=== PATIENT | male | born 1985 | race Caucasian/White ===

== ENCOUNTER 2017-02-09 16:36 | Emergency (ER) | payer BC ==
[2017-02-09] MEDS ORDERED: ACETAMINOPHEN 325 MG TABLET PO ONE (16:45)
--- NOTE | 2017-02-09 18:29 | ER Document Report ---
ED Medical Screen (RME) - General Mode of Arrival: Ambulatory Information source: Patient TRAVEL OUTSIDE OF THE [place] IN LAST 30 DAYS: No <ALESSIO CARUSO - Last Filed: 02/09/17 18:28> <CHINMAY LEE - Last Filed: 02/10/17 14:42> - General Chief Complaint: Fever Stated Complaint: HIGH TEMP/BODY ACHES Time Seen by Provider: 02/09/17 18:27 Notes: 31-year-old male presents to ED for fever and joint pain. Temp was 102.5 and he was given Tylenol in the pelvic area. His temperature is now 99.0 he states that his joint pain is improved. He denies any nausea vomiting cough. Denies any tick bite. He states it works at [employer]. I have greeted and performed a rapid initial assessment of this patient. A comprehensive ED assessment and evaluation of the patient, analysis of test results and completion of medical decision making process will be conducted by an additional ED providers. (ALESSIO CARUSO) - Related Data Allergies/Adverse Reactions: No Known Allergies Allergy (Unverified 02/09/17 16:42) Past Medical History Renal/ Medical History: Denies: Hx Peritoneal Dialysis Past Surgical History: Reports: Hx Orthopedic Surgery - R hand <ALESSIO CARUSO - Last Filed: 02/09/17 18:28> Course - Laboratory Result Diagrams: 02/09/17 18:50 02/09/17 18:50 <CHINMAY LEE - Last Filed: 02/10/17 14:42> - Vital Signs Vital signs: Temp Pulse Resp BP Pulse Ox 98.8 F 87 16 125/69 100 02/09/17 20:25 02/09/17 20:25 02/09/17 20:25 02/09/17 20:25 02/09/17 20:25 - Laboratory Laboratory results interpreted by me: 02/09/17 02/09/17 02/09/17 18:50 18:50 18:50 WBC 24.5 H RBC 6.77 H Hgb 12.9 L MCV 63 L MCH 19.1 L MCHC 30.4 L RDW 15.3 H Seg Neuts % (Manual) 80 H Band Neutrophils % 6 H Lymphocytes % (Manual) 8 L Abs Neuts (Manual) 21.1 H Direct Bilirubin 0.5 H Urine Protein 30 H Urine Urobilinogen 2.0 H Doctor's Discharge <ALESSIO CARUSO - Last Filed: 02/09/17 18:28> <CHINMAY LEE - Last Filed: 02/10/17 14:42> - Discharge Clinical Impression: Fever, Strep pharyngitis Condition: Stable Disposition: HOME, SELF-CARE Instructions: Acetaminophen, Fever ([facility]) Additional Instructions: Strep Throat Your sore throat is due to the streptococcus germ (strep throat). Strep throat usually makes you feel quite ill with fever and aches, headache, swollen sore throat, and tender bumps under the angles of the jaw. Strep throat requires antibiotic treatment. Although the sore throat may go away by itself, complications such as rheumatic fever, kidney disease, or throat abscess can occur. We usually prescribe antibiotics by mouth. Be sure to take the medicine until it's gone. If you stop early, the strep may come back. If you are vomiting, are severely ill, or can't remember to take pills, we can give you an antibiotic shot. Take acetaminophen or ibuprofen for pain and fever. Sip frequent clear liquids, or use popsicles or ice chips. Anesthetic sprays or lozenges may help. Make sure the air in the room is not too dry. Avoid using decongestants or antihistamines. Call the doctor if there is no improvement in three days, or if you have difficulty breathing, increasing throat pain, high fever, rash, or frequent vomiting. Maintain adequate fluid intake Take meds as directed tylenol/ibuprofen as needed over the counter cold medication as needed for symptoms Salt water gargles, throat sprays Use new toothbrush tomorrow evening. F/u: with your PCM in 2-3 days for a recheck Return to the ED with any fever, headache, worsening pain, chest pain, shortness of breath, trouble swallowing/breathing, abdominal pain, n/v/d, or worsening symptoms otherwise. Prescriptions: Penicillin V Potassium [Penicillin Vk 500 mg Tablet] 500 mg PO BID #20 tablet Forms: Elevated Blood Pressure, Smoking Cessation Education
[2017-02-09] MEDS ORDERED: NORMAL SALINE 1000 ML 1,000 ML IV ONE (19:20)
[2017-02-09] MEDS ORDERED: DEXAMETHASONE SOD PHOS INJ 10 MG/1 ML VIAL IM ONE (19:22)
--- NOTE | 2017-02-09 19:26 | ER Document Report ---
ED General - General Chief Complaint: Fever Stated Complaint: HIGH TEMP/BODY ACHES Time Seen by Provider: 02/09/17 18:27 Mode of Arrival: Ambulatory TRAVEL OUTSIDE OF THE [place] IN LAST 30 DAYS: No - HPI Notes: Patient with no significant PMH comes to the office c/o fever (103H), body ache , sore throat x2-3 days. Pt states that he has been taking tylenol/ibuprofen for his fever and symptoms that seem to help. He is still able to eat and drink without any problems. Pt states that he did receive tylenol during his triage which has since resolved all of his symptoms and is now feeling okay. Denies any ear pain, nasal gavi/discharge, cough, wheeze, sob, dyspnea, dysphagia, cp, palp, syncope, arellano, abd pain, n/v/d, hematemesis, hematochezia, melena, dysuria, muscle weakness, or rash. No recent insect/tick bite. No recent travel. No recent illness. No known exposure to close contact who is ill. NKDA's. No daily PO meds. + smoker. - Related Data Allergies/Adverse Reactions: No Known Allergies Allergy (Unverified 02/09/17 16:42) Past Medical History - General Information source: Patient - Social History Smoking Status: Current Every Day Smoker Family History: Reviewed & Not Pertinent Patient has suicidal ideation: No Patient has homicidal ideation: No Renal/ Medical History: Denies: Hx Peritoneal Dialysis Past Surgical History: Reports: Hx Orthopedic Surgery - R hand Review of Systems - Review of Systems Notes: REVIEW OF SYSTEMS: CONSTITUTIONAL : see hpi EENT: see hpi CARDIOVASCULAR: Denies chest pain. Denies palpitations or racing or irregular heart beat. Denies ankle edema. RESPIRATORY: Denies cough, cold, or chest congestion. Denies shortness of breath, difficulty breathing, or wheezing. GASTROINTESTINAL: Denies abdominal pain or distention. Denies nausea, vomiting , or diarrhea. Denies blood in vomitus, stools, or per rectum. Denies black, tarry stools. Denies constipation. GENITOURINARY: Denies difficulty urinating, painful urination, burning, frequency, blood in urine, or discharge. MUSCULOSKELETAL: Denies back or neck pain or stiffness. Denies joint pain or swelling. SKIN: Denies rash, lesions or sores. HEMATOLOGIC : Denies easy bruising or bleeding. LYMPHATIC: Denies swollen, enlarged glands. NEUROLOGICAL: Denies confusion or altered mental status. Denies passing out or loss of consciousness. Denies dizziness or lightheadedness. Denies headache. Denies weakness or paralysis or loss of use of either side. Denies problems with gait or speech. Denies sensory loss, numbness, or tingling. ALL OTHER SYSTEMS REVIEWED AND NEGATIVE. Dictation was performed using [employer] voice recognition software Physical Exam - Vital signs Vitals: Temp Pulse Resp BP Pulse Ox 102.7 F H 123 H 20 141/82 H 97 02/09/17 16:44 02/09/17 16:44 02/09/17 16:44 02/09/17 16:44 02/09/17 16:44 Notes: PHYSICAL EXAMINATION: GENERAL: Well-appearing, well-nourished and in no acute distress. Non-toxic appearing. Very attentive and cooperative. Does not look uncomfortable. Vitals: pulse 84. RR 16. temp 99 HEAD: Atraumatic, normocephalic. EYES: Pupils equal round and reactive to light, extraocular movements intact, sclera anicteric, conjunctiva are normal. ENT: EAC clear b/l. TM's intact b/l without erythema, fluid, or perforation. Nares patent and without discharge. Moist mucous membranes. No sinus tenderness. + pharyngeal erythema. + tonsilar hypertrophy 2+ b/l with exudates b/l. uvula midline. no palatine shift or peritonsilar abscess noted. No resp compromise. NECK: Normal range of motion, supple without lymphadenopathy. No rigidity. No meningismus. LUNGS: Breath sounds clear to auscultation bilaterally and equal. No wheezes rales or rhonchi. HEART: Regular rate and rhythm without murmurs, rubs, gallops. ABDOMEN: Soft, nontender, nondistended abdomen. No guarding, no rebound. No masses appreciated. Normal bowel sounds present. No CVA tenderness bilaterally. Musculoskeletal: FROM to passive/active. Strength 5+/5. Extremities: No cyanosis, clubbing, or edema b/l. Peripheral pulses 2+. Capillary refill less than 3 seconds. NEUROLOGICAL: Cranial nerves grossly intact. Normal speech, normal gait. Normal sensory, motor exams PSYCH: Normal mood, normal affect. SKIN: Warm, Dry, normal turgor, no rashes or lesions noted. Course - Re-evaluation Re-evalutation: 02/09/17 20:10 Patient is an afebrile (after meds in ED), well-hydrated, 31yo male who presents with acute strep pharyngitis with CENTOR criteria 3/4. Rapid strep positive. Vitals stable. PE otherwise unremarkable. I tried to cancel other labs and cxr but they were already performed. Leukocytosis noted with slight left shift. I will send him home with Penicillin V 500mg PO BID x10 days. Conservative measures otherwise for symptoms. Recheck with PCM in 2-3 days. Return to the ED with worsening symptoms. Pt in agreement. - Vital Signs Vital signs: Temp Pulse Resp BP Pulse Ox 99.0 F 123 H 20 141/82 H 97 02/09/17 18:26 02/09/17 16:44 02/09/17 16:44 02/09/17 16:44 02/09/17 16:44 - Laboratory Result Diagrams: 02/09/17 18:50 02/09/17 18:50 Laboratory results interpreted by me: 02/09/17 02/09/17 02/09/17 18:50 18:50 18:50 WBC 24.5 H RBC 6.77 H Hgb 12.9 L MCV 63 L MCH 19.1 L MCHC 30.4 L RDW 15.3 H Seg Neuts % (Manual) 80 H Band Neutrophils % 6 H Lymphocytes % (Manual) 8 L Abs Neuts (Manual) 21.1 H Direct Bilirubin 0.5 H Urine Protein 30 H Urine Urobilinogen 2.0 H Discharge - Discharge Clinical Impression: Strep pharyngitis Fever Qualifiers: Fever type: due to other condition Qualified Code(s): R50.81 - Fever presenting with conditions classified elsewhere Condition: Stable Disposition: HOME, SELF-CARE Instructions: Acetaminophen, Fever ([facility]) Additional Instructions: Strep Throat Your sore throat is due to the streptococcus germ (strep throat). Strep throat usually makes you feel quite ill with fever and aches, headache, swollen sore throat, and tender bumps under the angles of the jaw. Strep throat requires antibiotic treatment. Although the sore throat may go away by itself, complications such as rheumatic fever, kidney disease, or throat abscess can occur. We usually prescribe antibiotics by mouth. Be sure to take the medicine until it's gone. If you stop early, the strep may come back. If you are vomiting, are severely ill, or can't remember to take pills, we can give you an antibiotic shot. Take acetaminophen or ibuprofen for pain and fever. Sip frequent clear liquids, or use popsicles or ice chips. Anesthetic sprays or lozenges may help. Make sure the air in the room is not too dry. Avoid using decongestants or antihistamines. Call the doctor if there is no improvement in three days, or if you have difficulty breathing, increasing throat pain, high fever, rash, or frequent vomiting. Maintain adequate fluid intake Take meds as directed tylenol/ibuprofen as needed over the counter cold medication as needed for symptoms Salt water gargles, throat sprays Use new toothbrush tomorrow evening. F/u: with your PCM in 2-3 days for a recheck Return to the ED with any fever, headache, worsening pain, chest pain, shortness of breath, trouble swallowing/breathing, abdominal pain, n/v/d, or worsening symptoms otherwise. Prescriptions: Penicillin V Potassium [Penicillin Vk 500 mg Tablet] 500 mg PO BID #20 tablet Forms: Smoking Cessation Education, Elevated Blood Pressure
[2017-02-09 19:32] LABS: HEMATOCRIT 42.5 % (37.9-51.0); HEMOGLOBIN 12.9 g/dL (13.5-17.0); HGB HCT DIFFERENCE -3.8; MEAN CORPUSCULAR HEMOGLOBIN 19.1 pg (27.0-33.4); MEAN CORPUSCULAR HGB CONC 30.4 g/dL (32.0-36.0); RED BLOOD COUNT 6.77 10^6/uL (4.35-5.55); RED CELL DISTRIBUTION WIDTH 15.3 % (11.5-14.0); WHITE BLOOD COUNT 24.5 10^3/uL (4.0-10.5)
[2017-02-09 19:35] LABS: APPEARANCE,URINE CLEAR; BILIRUBIN,URINE NEGATIVE (NEGATIVE); GLUCOSE, URINE NEGATIVE (NEGATIVE); KETONES,URINE NEGATIVE (NEGATIVE); LEUKOCYTE ESTERASE,URINE NEGATIVE (NEGATIVE); NITRITE,URINE NEGATIVE (NEGATIVE); PROTEIN,URINE 30 mg/dL (NEGATIVE)
[2017-02-09 19:44] LABS: BACTERIA,URINE TRACE /HPF
[2017-02-09 19:46] LABS: ALANINE AMINOTRANSFERASE 48 U/L (21-72); ALBUMIN 4.5 g/dL (3.5-5.0); ALKALINE PHOSPHATASE 64 U/L (38-126); ANION GAP 13 (5-19); ASPARTATE AMINO TRANSFERASE 36 U/L (17-59); BILIRUBIN,DIRECT 0.5 mg/dL (0.0-0.4); BILIRUBIN,TOTAL 1.1 mg/dL (0.2-1.3); BLOOD UREA NITROGEN 14 mg/dL (7-20); CALCIUM 9.2 mg/dL (8.4-10.2); CARBON DIOXIDE 23 mmol/L (22-30); CHLORIDE 102 mmol/L (98-107); CREATININE RESULT 1.06 mg/dL (0.52-1.25); GLUCOSE 96 mg/dL (75-110); RBC,URINE 0-1 /HPF; SODIUM 138.3 mmol/L (137-145); TOTAL PROTEIN 7.8 g/dL (6.3-8.2); WBC,URINE 0-1 /HPF
[2017-02-09 19:50] LABS: ANISOCYTOSIS SLIGHT; BAND NEUTROPHILS % (MANUAL) 6 % (3-5); BASOPHILS % (MANUAL) 0 % (0-2); EOSINOPHILS % (MANUAL) 0 % (0-6); LYMPHOCYTES % (MANUAL) 8 % (13-45); TOTAL CELLS COUNTED 100; TOXIC GRANULATION SLIGHT
--- NOTE | 2017-02-09 19:50 | RADIOLOGY REPORT (SQ) ---
EXAM DESCRIPTION: CHEST PA/LAT COMPLETED DATE/TIME: 02/09/2017 7:02 pm REASON FOR STUDY: fever COMPARISON: None. EXAM PARAMETERS: NUMBER OF VIEWS: two views TECHNIQUE: Digital Frontal and Lateral radiographic views of the chest acquired. RADIATION DOSE: NA LIMITATIONS: none FINDINGS: LUNGS AND PLEURA: No opacities, masses or pneumothorax. No pleural effusion. MEDIASTINUM AND HILAR STRUCTURES: No masses or contour abnormalities. HEART AND VASCULAR STRUCTURES: Heart normal size. No evidence for failure. BONES: No acute findings. HARDWARE: None in the chest. OTHER: No other significant finding. IMPRESSION: NO SIGNIFICANT RADIOGRAPHIC FINDING IN THE CHEST. TECHNICAL DOCUMENTATION: JOB ID: [id number] [employer]- All Rights Reserved
[2017-02-09 19:54] LABS: HYPOCHROMASIA 1+; MICROCYTOSIS 3+; POLYCHROMASIA SLIGHT
[2017-02-09 19:55] LABS: ACANTHOCYTES 1+; OVALOCYTES 1+; TARGET CELLS 1+; TEAR DROP CELLS 1+
[2017-02-09 19:57] LABS: MEAN CORPUSCULAR VOLUME 63 fl (80-97)
[2017-02-09 20:25] VITALS: BP 125/69
[2017-02-12 17:07] LABS: PATH REVIEW PATHOLOGIST REVIEWED
== END 2017-02-09 20:25 | disposition home or self-care (01) ==
LOC: ER 16:36
DX: J02.0 Streptococcal pharyngitis (principal); R50.81 Fever presenting with conditions classified elsewhere; M79.1 Myalgia; F17.200 Nicotine dependence, unspecified, uncomplicated
CPT/HCPCS: 99283; 96372; 96360; 36415; 87880; 85025; 80053; 81001; 87804; 71020; J7030; J1100